=== PATIENT | male | born 1965 | race Hispanic/Latino ===

== ENCOUNTER 2023-02-09 23:38 | Emergency (ER) | payer SELFPAY ==
[2023-02-10 00:09] LABS: Absolute Lymphocytes (CBC) 4.6 K/uL (0.7-4.9); Hematocrit 49.2 % (39.6-49.0); Lymphocytes % 40.9 % (15.3-44.8); MCV 89.2 fL (80-100); MPV 9.3 fL (7.6-11.3); RBC Red Blood Cell Count 5.51 M/uL (4.33-5.43)
[2023-02-10 00:14] LABS: Arterial Blood Carboxyhemoglob 1.2 % (0-1.5); Blood Gas Oxyhemoglobin 90.9 % (94-97); Blood O2 Saturation 93.7 % (92-98.5)
[2023-02-10] MEDS ORDERED: NA CHLORIDE 0.9% 2,000 ML ONE (00:14)
[2023-02-10] MEDS ORDERED: ASPIRIN 81 MG CHEWABLE TABLET ONE (00:14)
[2023-02-10] MEDS ORDERED: NA CHLORIDE 0.9% 500 ML ONE (00:14)
[2023-02-10 00:33] LABS: Potassium 3.7 mEq/L (3.5-5.1); Troponin High Sensitivity 3.9 pg/mL (<58.9)
[2023-02-10 02:02] LABS: SARS-CoV-2 Antigen Rapid Res Negative (Negative)
[2023-02-10] MEDS ORDERED: INSULIN -REGULAR HUMAN 50 UNIT/0.5 ML ML ONE (03:59)
--- NOTE | 2023-02-10 04:21 | ER ---
Nurse's Notes [facility] Name: Jatin Whitt Age: 57 yrs Sex: Male : 1965 Arrival Date: 02/09/2023 Time: 23:38 Bed 5 Private MD: Diagnosis: Diabetes mellitus due to underlying condition with hyperglycemia;Heat exhaustion, unspecified;Hyperventilation;Dehydration Presentation: 02/09 23:56 Chief complaint: Patient's son or daughter states: "1 hr ago, he started having trouble mb9 breathing when laying down. He can't catch his breath. Nothing makes it better or worse". Ebola Screen: No symptoms or risks identified at this time. Initial Sepsis Screen: Does the patient meet any 2 criteria? No. Patient's initial sepsis screen is negative. Does the patient have a suspected source of infection? No. Patient's initial sepsis screen is negative. Risk Assessment: Do you want to hurt yourself or someone else? Patient reports no desire to harm self or others. Onset of symptoms was February 09, 2023. 23:56 Method Of Arrival: Wheelchair mb9 23:56 Acuity: TERA 2 mb9 Historical: - Allergies: 23:54 No Known Allergies; mb9 - PMHx: 23:54 Diabetes - IDDM; mb9 - Immunization history:: Adult Immunizations up to date. - Social history:: Smoking status: Patient/guardian denies using tobacco, but has a distant history of tobacco abuse. Screenin/05 04:47 [facility] ED Fall Risk Assessment (Adult) History of falling in the last 3 months, jb4 including since admission. Abuse screen: Denies threats or abuse. Nutritional screening: No deficits noted. Tuberculosis screening: No symptoms or risk factors identified. Assessment: 00:02 General: Appears uncomfortable, Behavior is anxious. Pain: Complains of pain in chest mb9 Pain does not radiate. Pain currently is 8 out of 10 on a pain scale. Quality of pain is described as throbbing, Pain began suddenly, Is continuous. Neuro: Buchanan Agitation-Sedation Scale (RASS): 0 - Alert and Calm Level of Consciousness is awake, alert, obeys commands, Oriented to person, place, time, situation, Appropriate for age. Cardiovascular: Reports chest pain, shortness of breath, Patient's skin is warm and dry. Cardiovascular: Rhythm is regular. Respiratory: Airway is patent Respiratory effort is even, unlabored, Respiratory pattern is regular. GI: Abdomen is round non-distended, Bowel sounds present X 4 quads. Abd is soft and non tender X 4 quads. Derm: Skin is pink, warm \\T\\ dry. Musculoskeletal: Range of motion: intact in all extremities. 00:41 Reassessment: Pt appeared to have an absent seizure. provider notified. Pt is now jb4 A\\T\\Ox4. Respiratory: Breath sounds are clear in left upper lobe and left lower lobe Breath sounds are diminished in right upper lobe, right middle lobe and right lower lobe. 01:42 Reassessment: Patient appears in no apparent distress at this time. Patient and/or jb4 family updated on plan of care and expected duration. Pain level reassessed. Patient is alert, oriented x 3, equal unlabored respirations, skin warm/dry/pink. 03:00 Reassessment: Patient appears in no apparent distress at this time. Patient and/or jb4 family updated on plan of care and expected duration. Pain level reassessed. Patient is alert, oriented x 3, equal unlabored respirations, skin warm/dry/pink. 04:30 Reassessment: Patient appears in no apparent distress at this time. Patient and/or jb4 family updated on plan of care and expected duration. Pain level reassessed. Patient is alert, oriented x 3, equal unlabored respirations, skin warm/dry/pink. Vital Signs: 02/09 23:54 BP 167 / 100; Pulse 80; Resp 18; Temp 98.1; Pulse Ox 99% on R/A; Weight 77.56 kg; mb9 Height 5 ft. 4 in. ; 02/10 01:42 BP 128 / 80; Pulse 59; Resp 14; Pulse Ox 98% on R/A; jb4 03:01 BP 127 / 84; Pulse 59; Resp 14; Pulse Ox 98% on R/A; ll3 04:00 BP 126 / 90; Pulse 67; Resp 15; Pulse Ox 93% on R/A; ll3 02/09 23:54 Body Mass Index 29.35 (77.56 kg, 162.56 cm) mb9 ED Course: 02/09 23:50 Patient arrived in ED. jj6 23:54 Arm band placed on. mb9 23:56 Triage completed. mb9 23:57 Fiorella Musa FNP-C [facility]. snw 23:57 Hudson Talavera MD is Attending Physician. snw 23:57 Placed in gown. Bed in low position. Call light in reach. Side rails up X 1. Client mb9 placed on continuous cardiac and pulse oximetry monitoring. NIBP monitoring applied. air sampling and monitoring on. 23:58 Initial lab(s) drawn, by me, sent to lab. Inserted saline lock: 18 gauge in right jb4 antecubital area, using aseptic technique. Blood collected. 02/10 00:02 Stephanie Porter, RN is Primary Nurse. mb9 01:18 CT Head Brain wo Cont In Process Unspecified. EDMS 01:48 Chest Single View XRAY In Process Unspecified. EDMS 04:47 No provider procedures requiring assistance completed. IV discontinued, intact, jb4 bleeding controlled, No redness/swelling at site. Pressure dressing applied. Administered Medications: 00:09 Drug: Aspirin PO Chewable Tablet 324 mg Route: PO; jb4 00:39 Drug: NS 0.9% IV (30 ml/kg) 30 ml/kg Route: IV; Rate: bolus; Site: right antecubital; jb4 03:54 Drug: Insulin Regular Human IVP 5 units {Co-Signature: isaiah (Alireza Valdivia RN).} Route: ll3 IVP; Site: right forearm; Medication: 02/09 23:57 VIS not applicable for this client. mb9 Outcome: 02/10 04:20 Discharge ordered by . snw 04:47 Discharged to home ambulatory, with family. jb4 04:47 Condition: stable 04:47 Discharge instructions given to patient, Instructed on discharge instructions, follow up and referral plans. Demonstrated understanding of instructions, follow-up care. 04:48 Patient left the ED. isaiah Signatures: Dispatcher [employer] EDSD Fiorella Musa FNP-C FNP-Alireza Fox, RN RN jb4 Marzena Grover Lynsea, RN RN ll3 Stephanie Porter, RN RN marvel9 Alireza Valdivia RN
--- NOTE | 2023-02-10 04:21 | EDPHYS ---
Physician Documentation [facility] Name: Jatin Whitt Age: 57 yrs Sex: Male : 1965 Arrival Date: 02/09/2023 Time: 23:38 Bed 5 Private MD: ED Physician Hudson Talavera HPI: 02/10 00:00 This 57 yrs old Male presents to ER via Wheelchair with complaints of snw Breathing Difficulty. 00:00 The patient has shortness of breath at rest. Onset: The symptoms/episode began/occurred snw suddenly, just prior to arrival. Duration: The symptoms are continuous. Severity of symptoms: At their worst the symptoms were moderate. The patient has not experienced similar symptoms in the past. The patient has not recently seen a physician, and does not have an established primary care provider. 04:30 Pt states he was in an exceedingly hot room and just felt like he could not catch his snw breath. Historical: - Allergies: 02/09 23:54 No Known Allergies; mb9 - PMHx: 23:54 Diabetes - IDDM; mb9 - Immunization history:: Adult Immunizations up to date. - Social history:: Smoking status: Patient/guardian denies using tobacco, but has a distant history of tobacco abuse. ROS: 23:59 Constitutional: Negative for fever, chills, and weight loss, Eyes: Negative for injury, snw pain, redness, and discharge, ENT: Negative for injury, pain, and discharge, Neck: Negative for injury, pain, and swelling, Cardiovascular: Negative for chest pain, palpitations, and edema, Abdomen/GI: Negative for abdominal pain, nausea, vomiting, diarrhea, and constipation, Back: Negative for injury and pain, : Negative for injury, bleeding, discharge, and swelling, MS/Extremity: Negative for injury and deformity, Skin: Negative for injury, rash, and discoloration, Neuro: Negative for headache, weakness, numbness, tingling, and seizure, Psych: Negative for depression, anxiety, suicide ideation, homicidal ideation, and hallucinations. 23:59 Respiratory: Positive for shortness of breath. Exam: 23:58 Constitutional: This is a well developed, well nourished patient who is awake, alert, snw and in no acute distress. Head/Face: Normocephalic, atraumatic. Eyes: Pupils equal round and reactive to light, extra-ocular motions intact. Lids and lashes normal. Conjunctiva and sclera are non-icteric and not injected. Cornea within normal limits. Periorbital areas with no swelling, redness, or edema. 23:58 Neck: Trachea midline, no thyromegaly or masses palpated, and no cervical lymphadenopathy. Supple, full range of motion without nuchal rigidity, or vertebral point tenderness. No Meningismus. Chest/axilla: Normal chest wall appearance and motion. Nontender with no deformity. No lesions are appreciated. Cardiovascular: Regular rate and rhythm with a normal S1 and S2. No gallops, murmurs, or rubs. Normal PMI, no JVD. No pulse deficits. Abdomen/GI: Soft, non-tender, with normal bowel sounds. No distension or tympany. No guarding or rebound. No evidence of tenderness throughout. Back: No spinal tenderness. No costovertebral tenderness. Full range of motion. Skin: Warm, dry with normal turgor. Normal color with no rashes, no lesions, and no evidence of cellulitis. 23:58 ENT: Mouth: Oral mucosa: dry. 23:58 Respiratory: the patient does not display signs of respiratory distress, Respirations: shallow respirations, that is moderate, tachypnea, Breath sounds: are clear throughout. 23:58 Neuro: seizure activity, is not displayed by the patient. Vital Signs: 23:54 BP 167 / 100; Pulse 80; Resp 18; Temp 98.1; Pulse Ox 99% on R/A; Weight 77.56 kg; mb9 Height 5 ft. 4 in. ; 02/10 01:42 BP 128 / 80; Pulse 59; Resp 14; Pulse Ox 98% on R/A; jb4 03:01 BP 127 / 84; Pulse 59; Resp 14; Pulse Ox 98% on R/A; ll3 04:00 BP 126 / 90; Pulse 67; Resp 15; Pulse Ox 93% on R/A; ll3 02/09 23:54 Body Mass Index 29.35 (77.56 kg, 162.56 cm) mb9 MDM: 00:01 Patient medically screened. snw 04:21 Differential diagnosis: Anemia Anxiety Reaction Bronchitis CHF exacerbation, Chronic snw Obstructive Pulmonary Disease pneumonia, Pulmonary Embolism Sepsis. Antibiotic administration: Not indicated. Data reviewed: vital signs, nurses notes, lab test result(s), EKG, radiologic studies. Historians other than the Patient: Friend: . Counseling: I had a detailed discussion with the patient and/or guardian regarding: the historical points, exam findings, and any diagnostic results supporting the discharge/admit diagnosis, lab results, radiology results, the need for outpatient follow up, for definitive care, to return to the emergency department if symptoms worsen or persist or if there are any questions or concerns that arise at home. Response to treatment: the patient's symptoms have markedly improved after treatment. Special discussion: Based on the patient's history, exam, and Dx evaluation, there is no indication for emergent intervention or inpatient Tx. It is understood by the patient/guardian that if the Sx's persist or worsen they need to return immediately for re-evaluation. I have referred the patient to see his PCP for further evaluation of high blood pressure. Based on the history and exam findings, there is no indication for further emergent testing or inpatient evaluation. I discussed with the patient/guardian the need to see the primary care provider for further evaluation of the symptoms. 02/09 23:57 Order name: Basic Metabolic Panel; Complete Time: 00:33 jb4 02/09 23:57 Order name: CBC with Diff jb4 02/09 23:57 Order name: Troponin HS; Complete Time: 00:33 jb4 02/09 23:58 Order name: ABG; Complete Time: 00:29 snw 02/10 00:01 Order name: Blood Culture Adult (2) snw 02/10 00:01 Order name: Lactate w/ 2H reflex if indic.; Complete Time: 01:09 snw 02/10 00:23 Order name: Glucose, Ancillary Testing; Complete Time: 00:29 EDMS 02/10 01:09 Order name: Strep; Complete Time: 02:06 snw 02/10 01:09 Order name: Flu; Complete Time: 02:06 snw 02/10 01:09 Order name: SARS RAPID; Complete Time: 02: snw 02/10 01:56 Order name: Throat Culture EDMS 02/10 03:41 Order name: Glucose, Ancillary Testing; Complete Time: 03:41 EDMS 02/10 04:03 Order name: Lactate Sepsis 2 HR Follow-up; Complete Time: 04:04 EDMS 02/09 23:52 Order name: Chest Single View XRAY [facility] 02/10 00:35 Order name: CT Head Brain wo Cont snw 02/09 23:57 Order name: EKG; Complete Time: 23:58 [facility] 02/09 23:57 Order name: Cardiac monitoring; Complete Time: 23:57 [facility] 02/09 23:57 Order name: EKG - Nurse/Tech; Complete Time: 23:57 [facility] 02/09 23:57 Order name: IV Saline Lock; Complete Time: 23:57 jb4 02/09 23:57 Order name: Labs collected and sent; Complete Time: 23:58 [facility] 02/09 23:57 Order name: O2 Per Protocol; Complete Time: 23:58 [facility] 02/09 23:57 Order name: O2 Sat Monitoring; Complete Time: 23:58 [facility] 02/09 23:58 Order name: FSBS; Complete Time: 00:02 snw 02/10 03:07 Order name: FSBS; Complete Time: 03:31 snw EC:05 Rate is 77 beats/min. Rhythm is regular. QRS Quail is Normal. QRS interval is prolonged. snw Clinical impression: NSR w/ Non-specific ST/T Changes and right BBB. Administered Medications: 00:09 Drug: Aspirin PO Chewable Tablet 324 mg Route: PO; jb4 00:39 Drug: NS 0.9% IV (30 ml/kg) 30 ml/kg Route: IV; Rate: bolus; Site: right antecubital; jb4 03:54 Drug: Insulin Regular Human IVP 5 units {Co-Signature: jb4 (Alireza Valdivia RN).} Route: ll3 IVP; Site: right forearm; Disposition: 04:44 Co-signature as Attending Physician, Hudson Talavera MD I agree with the assessment sp4 and plan of care. I reviewed the patient's care provided by the Advanced Practice Provider and agree with the diagnosis and treatment plan. Disposition Summary: 02/10/23 04:20 Discharge Ordered Location: Home snw Condition: Stable snw Diagnosis - Diabetes mellitus due to underlying condition with hyperglycemia snw - Heat exhaustion, unspecified snw - Hyperventilation snw - Dehydration snw Followup: snw - With: Emergency Department - When: As needed - Reason: Worsening of condition Followup: snw - With: Private Physician - When: 2 - 3 days - Reason: Recheck today's complaints, Continuance of care, Re-evaluation by your physician Discharge Instructions: - Discharge Summary Sheet snw - Dehydration, Adult snw - Diabetes Mellitus and Sick Day Management snw - Hyperglycemia snw - Blood Glucose Monitoring, Adult snw - Heat Exhaustion snw - Rehydration, Adult snw Forms: - Work release form snw - Medication Reconciliation Form snw - Thank You Letter snw - Antibiotic Education snw - Prescription Opioid Use snw - [email or web address] snw - Family Work Release jb4 Signatures: Dispatcher [employer] EDMS Fiorella Musa, JAYLEN-C ELEMENTARY ESL TEACHER-Csnw Alireza Valdivia, RN RN jb4 Jose F Collier RN RN ll3 Stephanie Porter RN RN mb9 Hudson Talavera MD MD sp4 Alireza Valdivia RN jb4 Corrections: (The following items were deleted from the chart) 04:48 00:01 BETA HYDROXYBUTYRATE+C.LAB.BRZ ordered. snw jb4
[2023-02-10 05:23] VITALS: TEMP 98.1
[2023-02-10 05:27] VITALS: BP 126/90; O2SAT 93
--- NOTE | 2023-02-10 12:28 | EKG ---
Test Date: 2023-02-10 Test Time: 00:01:22 French Teacher: RV MEASUREMENT RESULTS: Intervals: Rate: 77 WV: 146 QRSD: 140 QT: 442 QTc: 500 [place]: P: 61 WV: 146 QRS: 89 T: 55 INTERPRETIVE STATEMENTS: Normal sinus rhythm Right bundle branch block Abnormal ECG No previous ECG available for comparison Electronically Signed On 02-10-23 12:27:40 CDT by Jacob Friedman
--- NOTE | 2023-02-11 10:54 | RAD REPORT ---
EXAM DESCRIPTION: CT - Head Brain Wo Cont - 02/10/2023 6:41 am CLINICAL HISTORY: CONFUSED COMPARISON: None. TECHNIQUE: CT HEAD WITHOUT IV CONTRAST on 02/10/2023 12:35 AM CDT This exam was performed according to our departmental dose-optimization program, which includes autom ated exposure control, adjustment of the mA and/or kV according to patient size and/or use of iterati ve reconstruction technique. FINDINGS: There is no acute hemorrhage, mass effect or midline shift. Crawford-white differentiation is preserved. There is no hydrocephalus. There is no significant volume loss for age. The calvarium is intact. Orbits and globes are unremarkable. The paranasal sinuses are clear. Mastoid air cells are clear. IMPRESSION: No acute intracranial findings. Electronically signed by: Oscar Ponce MD 02/10/2023 1:42 AM CDT Due to temporary technical issues with the PACS/Fluency reporting system, reports are being signed by the in house radiologists without review as a courtesy to insure prompt reporting. The interpreting radiologist is fully responsible for the content of the report.
--- NOTE | 2023-02-11 12:01 | RAD REPORT ---
EXAM DESCRIPTION: RAD - Chest Single View - 02/10/2023 1:46 am CLINICAL HISTORY: CHEST PAIN TECHNIQUE: AP chest COMPARISON: None available for comparison FINDINGS: CHEST: Heart: The cardiomediastinal silhouette is within normal limits. Lungs: No focal consolidation. Mediastinum: Unremarkable Pleura: No appreciable effusion. No pneumothorax. Bones: Intact IMPRESSION: No acute cardiopulmonary disease. Electronically signed by: Moisés Plata MD 02/10/2023 3:31 AM CDT Due to temporary technical issues with the PACS/Fluency reporting system, reports are being signed by the in house radiologists without review as a courtesy to insure prompt reporting. The interpreting radiologist is fully responsible for the content of the report.
== END 2023-02-10 04:48 | disposition home or self-care (01) ==
LOC: ER 23:38
DX: R06.4 Hyperventilation (principal); E86.0 Dehydration; T67.5XXA Heat exhaustion, unspecified, initial encounter; E08.65 Diabetes mellitus due to underlying condition with hyperglycemia
CPT/HCPCS: 36415; 70450; 71045; 80048; 82805; 82947; 83605; 84484; 85025; 87040; 87070; 87081; 87804; 87811; 93005; 99285; J1815; J7030; J7040